=== PATIENT | male | born 1995 | race Hispanic/Latino ===

== ENCOUNTER → 2020-02-29 | Outpatient (REF) | payer OTHER | LOC: M LAB REF 13:30 | PROVIDERS: ATTEND Physician Assistant Medical | DX: J02.9 Acute pharyngitis, unspecified (principal) ==

== ENCOUNTER → 2020-04-24 | Outpatient (CLI) | payer SELFPAY | LOC: M LABSMTC 19:07 | PROVIDERS: ATTEND Pediatrics | DX: Z11.59 Encounter for screening for other viral diseases (principal) ==

== ENCOUNTER 2022-07-10 11:03 | Emergency (ER) | payer OTHER, SELFPAY ==
[~2022-07-10] VITALS: Ht 190.5 cm; Wt 120.0 kg
[2022-07-10] MEDS ORDERED: IBUPROFEN 800 MG TAB PO ONE (12:25)
[2022-07-10] MEDS ORDERED: PENI500T PO (12:28)
[2022-07-10] MEDS ORDERED: BENZ1LOZ9 PO (12:32)
[2022-07-10 12:45] VITALS: BP 145/89
== END 2022-07-10 12:47 | disposition home or self-care (01) ==
LOC: M ED 11:03
DX: J03.00 Acute streptococcal tonsillitis, unspecified (principal)